=== PATIENT | female | born 1965 | race Caucasian/White ===

== ENCOUNTER 2017-09-02 17:25 | Emergency (ER) | payer OTHER ==
[2017-09-02] MEDS: DIPHTH,PERTUSS(ACELL),TET TOX 0.5 ML DISP.SYRIN. VAX IM (18:40)
[2017-09-02] MEDS: RABIES IMMUNE GLOBULIN PF 300 UNIT/2 ML VIAL. VAX IM (18:49)
[2017-09-02] MEDS: RABIES VIRUS VACC PF 2.5 UNIT / 1 ML VIAL. VAX IM (18:50)
== END 2017-09-02 19:14 | disposition home or self-care (01) ==
LOC: ER 17:25
DX: S61.257A Open bite of left little finger without damage to nail, initial encounter (principal); Z88.8 Allergy status to other drugs, medicaments and biological substances; W55.81XA Bitten by other mammals, initial encounter; Y93.89 Activity, other specified; Y99.8 Other external cause status; Y92.89 Other specified places as the place of occurrence of the external cause
CPT/HCPCS: 90375; 90471; 90472; 90675; 90715; 96372; 99284-25